=== PATIENT | female | born 2000 | race Caucasian/White ===

== ENCOUNTER 2022-09-15 14:57 | Emergency (ER) | payer SELFPAY ==
[2022-09-15] MEDS ORDERED: Lidocaine 1% (PF) 30 ML VIAL ONE (15:35)
[2022-09-15] MEDS ORDERED: Boostrix 0.5 ML (Tdap) VIAL (>/=7 yrs of age) ONE (15:36)
== END 2022-09-15 16:16 | disposition home or self-care (01) ==
LOC: CSHERS 14:57
DX: S61.217A Laceration without foreign body of left little finger without damage to nail, initial encounter (principal); Z23 Encounter for immunization; W27.4XXA Contact with kitchen utensil, initial encounter
CPT/HCPCS: 12002; 90471; 90715; J2001